=== PATIENT | female | born 1960 | race Caucasian/White ===

== ENCOUNTER 2021-06-15 14:27 | Emergency (ER) | payer MEDICARE ==
[2021-06-15] MEDS ORDERED: SODIUM CHLORIDE 0.9% 50 ML IVPB ONE (16:00)
[2021-06-15] MEDS ORDERED: BAMLANIVIMAB (EUA) 700 MG, ETESEVIMAB (EUA) 1,400 MG in SODIUM CHLORIDE 0.9% 100 ML IVPB ONE (16:00)
[2021-06-15] MEDS ORDERED: ACETAMINOPHEN TAB 500 MG TAB PO STA (16:42)
--- NOTE | 2021-06-15 16:43 | ED ---
URI HPI - General Chief Complaint: Upper Respiratory Infection Stated Complaint: Covid Test, COVID Exposure Source: patient Mode of arrival: ambulatory Limitations: no limitations - History of Present Illness Initial Comments: Patient is a 61-year-old female who presents to the emergency department today for treatment of COVID-19. Patient is vaccinated she has not yet had her b ooster vaccines, she just a positive for COVID earlier in the week, due to having multiple medical conditions and a BMI of 42 she is a candidate for multiple falls and will like this therapy. She reports she feels like she got hit by a bus she feels very sick. She is currently on doxycycline for possible pneumonia from her primary care physician. - Related Data Allergies Allergy/AdvReac Type Severity Reaction Status Date / Time cimetidine [From Tagamet] Allergy Unknown Verified 06/15/21 15:19 fluconazole [From Diflucan] Allergy Unknown Verified 06/15/21 15:19 vancomycin Allergy Unknown Verified 06/15/21 15:19 Review of Systems ROS Statement: Those systems with pertinent positive or pertinent negative responses have been documented in the HPI. ROS Other: All systems not noted in ROS Statement are negative. Past Medical History Past Medical History: Diabetes Mellitus, Hyperlipidemia, Hypertension, Thyroid Disorder History of Any Multi-Drug Resistant Organisms: None Reported Past Surgical History: Section, Orthopedic Surgery Past Psychological History: Depression Smoking Status: Former smoker Past Alcohol Use History: None Reported Past Drug Use History: None Reported General Exam - General Exam Comments Initial Comments: Physical Exam GENERAL: Patient is well-developed and well-nourished. Patient is nontoxic and well-hydrated and is in no distress. BMI 42 HENT: Normocephalic, Atraumatic. EYES: PERRL, EOMI PULMONARY: Unlabored respirations. No audible rales rhonchi or wheezing was noted. CARDIOVASCULAR: There is a regular rate and rhythm without any murmurs gallops or rubs. ABDOMEN: Soft and nontender with normal bowel sounds. SKIN: Skin is clear with no lesions or rashes and otherwise unremarkable. : Deferred NEUROLOGIC: Patient is alert and oriented x3. Moving all extremities spontaneously MUSCULOSKELETAL: Normal extremities with adequate strength and full range of motion. No lower extremity swelling or edema. No calf tenderness. PSYCHIATRIC: Normal psychiatric evaluation. Limitations: no limitations Course Vital Signs 06/15/21 15:19 Temperature 98.5 F Pulse Rate 99 Respiratory 20 Rate Blood Pressure 121/75 O2 Sat by Pulse 98 Oximetry Medical Decision Making - Medical Decision Making Well-appearing obese female in no acute respiratory distress, patient is positive for COVID-19, based on her BMI and medical history she is a candidate for monoclonal's and would like to move forward with this therapy. Patient received her monoclonal's without reaction and was discharged home in stable condition. Return parameters including pulse ox monitoring heart rate monitoring were discussed with the patient. - Lab Data Lab Results 06/15/21 Range/Units 15:23 Coronavirus (PCR) Detected A (Not Detectd) Disposition Clinical Impression: COVID-19 Disposition: HOME SELF-CARE Condition: Stable Additional Instructions: Take supplements including vitamin C, vitamin D and Zinc Drink plenty of fluids to stay hydrated Treat your fever with Tylenol and Motrin Monitor your oxygen saturation and heart rate, return to the emergency department if your oxygens remains below 90% heart rate remains over 110 at rest Is patient prescribed a controlled substance at d/c from ED?: No Referrals: Uli Hernandez MD [Primary Care Provider] - 1-2 days
[2021-06-15 18:56] VITALS: RESP 18
[2021-06-15 18:57] VITALS: BP 120/73; PULSE 93; TEMP 98
== END 2021-06-15 18:05 | disposition home or self-care (01) ==
LOC: EC 14:27
DX: U07.1 COVID-19 (principal); E11.9 Type 2 diabetes mellitus without complications; I10 Essential (primary) hypertension; E78.5 Hyperlipidemia, unspecified; Z87.891 Personal history of nicotine dependence
CPT/HCPCS: 87635; 99283; J3490

== ENCOUNTER → 2023-11-09 | Outpatient (CLI) | payer MEDICARE, OTHER | END | disposition home or self-care (01) | LOC: LABWHC1 13:05 | PROVIDERS: ATTEND Physician Assistant | DX: L40.0 Psoriasis vulgaris (principal); L40.59 Other psoriatic arthropathy; L30.4 Erythema intertrigo | CPT/HCPCS: 36415; 86480 ==

== ENCOUNTER → 2024-01-15 | Outpatient (CLI) | payer MEDICARE, OTHER | END | disposition home or self-care (01) | LOC: LABWHC1 12:47 | PROVIDERS: ATTEND Family Medicine | DX: E03.9 Hypothyroidism, unspecified (principal) | CPT/HCPCS: 36415; 84443 ==

== ENCOUNTER → 2024-08-14 | Outpatient (CLI) | payer MEDICARE, OTHER ==
--- NOTE | 2024-08-15 07:58 | BD ---
EXAMINATION TYPE: Axial Bone Density DATE OF EXAM: 08/14/2024 CLINICAL HISTORY: 64 years old Female. ICD-10 CODE: Z13.820 REQ OFC FAX UPDATED ORDER WITH Z78.0 , A dditional History: Height: 63.5 Weight: 242 FRAX RISK QUESTIONS: Family History (Parent hip fracture): no History of Fracture in Adulthood: no Secondary Osteoporosis: yes 3. Menopause before 45: yes RISK FACTORS HISTORY OF: Surgery to Hip(right): yes When: 2021 MEDICATIONS: Thyroid Medications: yes Which medication: Levothyroxine How Lon+years Osteoporosis Medications: no EXAM MEASUREMENTS: Bone mineral densitometry was performed using the [employer] System. Bone mineral density as measured about the Lumbar spine is: ----- L1-L4(G/cm2): 1.063 T Score Values are as follows: ----- L1: -1.2 ----- L2: -1.1 ----- L3: -0.8 ----- L4: -1.0 ----- L1-L4: -1.0 Z Score Values are as follows: ----- L1: -0.9 ----- L2: -0.8 ----- L3: -0.5 ----- L4: -0.7 ----- L1-L4: -0.7 Bone mineral density baseline Bone mineral density about the L hip (g/cm2): 0.932 T Score values are as follows: -----L Neck: -1.6 -----L Total: -0.6 Z Score values are as follows: -----L Neck: -1.0 -----L Total: -0.3 Bone mineral density baseline FRAX%s: The graph provided illustrates a 7.9% chance for a major osteoporotic fx and a 0.8% chance fo r the hips probability for fx in 10 years time. IMPRESSION: Osteopenia (T Score between -2.5 and -1). There is slightly increased risk of fracture and the patient may be considered for treatment. Re-Screen 2-5 years. NOTE: T-SCORE=SD OF THE YOUNG ADULT MEAN. [facility], , 08/15/2024 7:56 AM
== END | disposition home or self-care (01) ==
LOC: RADBDWWP 15:20
PROVIDERS: ATTEND Family Medicine
DX: Z13.820 Encounter for screening for osteoporosis (principal); M85.89 Other specified disorders of bone density and structure, multiple sites
CPT/HCPCS: 77080

== ENCOUNTER → 2024-12-10 | Outpatient (CLI) | payer MEDICARE, OTHER ==
[2024-12-10 16:36] LABS: ALT 26 U/L (8-44); AST 24 U/L (13-35); Albumin 4.1 g/dL (3.8-4.9); Albumin/Globulin Ratio 1.46 Ratio (1.60-3.17); Alkaline Phosphatase 111 U/L (41-126); BUN/Creat Ratio 10.83 Ratio (12.00-20.00); Calcium 9.4 mg/dL (8.7-10.3); Carbon Dioxide 22.2 mmol/L (21.6-31.8); Chloride 103 mmol/L (96-109); Globulin 2.8 g/dL (1.6-3.3); Glucose 110 mg/dL (70-110); Potassium 4.3 mmol/L (3.5-5.5); Sodium 139 mmol/L (135-145); Total Bilirubin 0.8 mg/dL (0.3-1.2); Total Protein 6.9 g/dL (6.2-8.2)
== END | disposition home or self-care (01) ==
LOC: LABWHC1 12:03
PROVIDERS: ATTEND Internal Medicine
DX: E11.65 Type 2 diabetes mellitus with hyperglycemia (principal); Z79.4 Long term (current) use of insulin
CPT/HCPCS: 36415; 80053; 83036